=== PATIENT | male | born 1965 | race African-American/Black ===

== ENCOUNTER 2020-04-20 06:30 | Emergency (ER) | payer OTHER ==
[~2020-04-20] VITALS: Ht 177.8 cm; Wt 88.5 kg
--- NOTE | 2020-04-20 06:30 | NUR ---
[id number] C/O SOB AND DIZZINESS X1 HOUR; PT AAOX4, PT TO BED 16, GOWNED, PLACED ON MONITOR, VSS, PENDING ER PROVIDER ANA LILIA
--- NOTE | 2020-04-20 06:56 | NUR ---
PIV STARTED, UNABLE TO OBTAIN BLOOD.
[2020-04-20 07:19] LABS: BASOPHILS # (AUTO) 0.1 /CMM (0.0-0.2); BASOPHILS % (AUTO) 1.4 % (0.0-2.0); EOSINOPHILS % (AUTO) 0.2 % (0.0-6.0); HEMATOCRIT 39 % (39-51); HEMOGLOBIN 12.4 g/dL (13.5-17.5); LYMPHOCYTES # (AUTO) 0.6 /CMM (0.8-4.8); MEAN CORPUSCULAR HGB CONC 32 g/dl (31.0-36.0); MEAN CORPUSCULAR VOLUME 94 fL (80-96); MONOCYTES # (AUTO) 0.7 /CMM (0.1-1.30); MONOCYTES % (AUTO) 7.4 % (2.0-12.0); NEUTROPHILS # (AUTO) 7.5 /CMM (1.8-8.9); PLATELET COUNT (AUTO) 273 /CMM (150-450); RED BLOOD CELL COUNT(AUTO) 4.15 MIL/uL (4.5-6.0)
[2020-04-20 07:28] LABS: CALCIUM, SERUM 8.5 mg/dL (8.5-10.1); CREATININE 1.5 mg/dL (0.6-1.3); POTASSIUM 3.9 mmol/L (3.5-5.1)
[2020-04-20 07:40] LABS: ALBUMIN 2.8 g/dL (3.4-5.0); BILIRUBIN,DIRECT 0.1 mg/dL (0.0-0.2); BILIRUBIN,TOTAL 0.2 mg/dL (0.2-1.0); TOTAL PROTEIN, SERUM 6.7 g/dL (6.4-8.2)
[2020-04-20] MEDS ORDERED: FUROSEMIDE 40 MG TABLET PO ONE (08:00)
[2020-04-20] MEDS ORDERED: FUROSEMIDE 40 MG TABLET ONE (08:04)
--- NOTE | 2020-04-20 08:44 | NUR ---
signed homeless discharge. aaox3 ambulatory w/ steady gait. discharge from ed in stable condition.
[2020-04-20 08:46] VITALS: BP 122/65
== END 2020-04-20 08:48 | disposition home or self-care (01) ==
LOC: ER 06:32
DX: I11.0 Hypertensive heart disease with heart failure (principal); I50.9 Heart failure, unspecified; R60.0 Localized edema; Z91.14 Patient's other noncompliance with medication regimen
CPT/HCPCS: 36415; 71045-TC; 80048-TC; 80076-TC; 83880; 84484-TC; 85025-TC; 85730-TC